=== PATIENT | male | born 1950 | race Caucasian/White ===

== ENCOUNTER 2019-03-26 05:04 | Day surgery (SDC) | payer OTHER ==
[~2019-03-26] VITALS: Ht 182.9 cm; Wt 70.5 kg
[2019-03-26 06:56] LABS: BASOPHILS 0.6 % (0-2); EOSINOPHILS 3.5 % (0-7); HEMATOCRIT 39.8 % (42.0-54.0); HEMOGLOBIN 13.6 g/dL (13.5-17.5); IMMATURE GRANULOCYTES 0.2 % (0-5); LYMPHOCYTES 27.6 % (15-50); MCH 30.1 pg (26.0-34.0); MCHC 34.2 g/dL (31.0-37.0); MCV 88.1 fL (80.0-100.0); MONOCYTES 7.1 % (2-11); PLATELET COUNT 191 10x3/uL (130-400); RBC 4.52 10x6/uL (4.20-6.10); WBC 5.4 10x3/uL (4.8-10.8)
[2019-03-26 07:08] LABS: CALC OSMOLALITY 281 mosm/kg (275-300); CALCIUM 9.2 mg/dL (8.5-10.1); CARBON DIOXIDE 29.7 mmol/L (21.0-32.0); CHLORIDE - SERUM 103 mmol/L (98-107); GLUCOSE 102 mg/dL (74-106); POTASSIUM - SERUM 3.7 mmol/L (3.5-5.1); SODIUM 140 mmol/L (136-145); UREA NITROGEN 20 mg/dL (7-18); eGFR NON AFRICAN AMERICAN 79 mL/min (90-120)
[2019-03-26] MEDS ORDERED: CLEOCIN HCL150 MG PO (07:10)
[2019-03-26] MEDS ORDERED: BACTRIM 400-801 TAB PO (07:12)
--- NOTE | 2019-03-26 07:13 | NUR ---
DR. RICO NOTIFIED AND SITTER ORDERED. SITTER AT BEDSIDE. NOTIFIED CHARGE NURSE AND ATTENDING IN REGARDS TO ASSESSMENT FINDINGS. RESOURCES GIVEN TO PT AND SAFETY PLAN INITIATED.
[2019-03-26] MEDS ORDERED: CIPRO500 MG PO (07:14)
[2019-03-26] MEDS ORDERED: CHLORTHALIDONE25 MG PO (07:15)
[2019-03-26] MEDS ORDERED: COZAAR50 MG PO (07:15)
[2019-03-26] MEDS ORDERED: BAYER CHEWABLE81 MG PO (07:16)
[2019-03-26] MEDS ORDERED: TRIPLE ANTIBI28.4 GM TOPICAL (07:20)
[2019-03-26 07:21] VITALS: Ht 182.9 cm; Wt 70.5 kg
--- NOTE | 2019-03-26 07:31 | NUR ---
0732 PT STATES HE TAKES 3 DIFFERENT ANTIBIOTIC BUT TAKES 1 ONE DAY, A DIFFERENT THE NEXT, & THE 3 DIFFERENT ONE ON DAY 3 DAY 4 NONE THEM REUSMES THE ROTATION. HE WAS UNABLE TO TALL WHICH DAY HE TOOK WHICH MED. Verena OSBORNE R.N.
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
--- NOTE | 2019-03-26 11:19 | NUR ---
0907 IV DC'ED WITH CATH INTACT. PRESSURE TO SITE. NO BLEEDING NOTED. DRESSING. ADC PRISION GUARDS X'S 2 @ BEDSIDE. Verena OSBORNE R.N.
--- NOTE | 2019-03-26 11:21 | NUR ---
0922 DRESSED. AWAKE & ALERT SITTING UP IN WHEELCHAIR. SUPRAPUBIC CATHETER INTACT DRAINING CLEAR YELLOW URINE. MED REC & POST CYSTOSCOPY D/C INSTRUCTIONS REVIEWED WITH PATIENT & GUARDS. PT VOICED UNDERSTANDING. GUARDS INFORMED TO ALERT STAFF @ [facility] THE PT SCREENED POSITIVE IN SCREENING. TO [facility] VAN PER WHEELCHAIR BY STAFF ACCOMPANIED BY 1 [facility] PRISION GUARD. Verena OSBORNE R.N.
== END 2019-03-26 09:22 ==
LOC: D.OPS 05:04
PROVIDERS: Anesthesiology; ATTEND Urology
DX: N31.9 Neuromuscular dysfunction of bladder, unspecified (principal); N35.919 Unspecified urethral stricture, male, unspecified site; I10 Essential (primary) hypertension